=== PATIENT | male | born 1990 | race Caucasian/White ===

== ENCOUNTER 2020-05-24 08:36 | Outpatient (CLI) | payer OTHER | END 2020-05-24 23:59 | disposition home or self-care (01) | LOC: CFH 08:36 | PROVIDERS: ATTEND Physician Assistant | DX: K29.70 Gastritis, unspecified, without bleeding (principal); B96.81 Helicobacter pylori [H. pylori] as the cause of diseases classified elsewhere | CPT/HCPCS: 76705 ==